=== PATIENT | female | born 1995 | race African-American/Black ===

== ENCOUNTER 2021-09-19 11:00 | Emergency (ER) | payer OTHER ==
[~2021-09-19] VITALS: Ht 160 cm; Wt 72.6 kg
[2021-09-19] MEDS ORDERED: METH-649 PO (13:25)
[2021-09-19] MEDS ORDERED: IBUP-1957 PO (13:25)
--- NOTE | 2021-09-19 13:30 | NUR ---
Patient discharged to home in stable condition. Written and verbal after care instructions given. Patient verbalizes understanding of instruction.
[2021-09-19 13:31] VITALS: BP 110/67
== END 2021-09-19 13:31 | disposition home or self-care (01) ==
LOC: ER 11:30 → EDSEX 11:30 → ER 13:31
DX: S16.1XXA Strain of muscle, fascia and tendon at neck level, initial encounter (principal); S29.012A Strain of muscle and tendon of back wall of thorax, initial encounter; Z88.0 Allergy status to penicillin; Z79.899 Other long term (current) drug therapy; V89.2XXA Person injured in unspecified motor-vehicle accident, traffic, initial encounter; Y93.89 Activity, other specified; Y92.89 Other specified places as the place of occurrence of the external cause; Y99.8 Other external cause status
CPT/HCPCS: 84703-TC

== ENCOUNTER 2023-04-09 08:56 | Emergency (ER) | payer BC, OTHER ==
[~2023-04-09] VITALS: Ht 160 cm; Wt 72.6 kg
[~2023-04-09 08:56] MED LIST: IBUP-1957 PO; METH-649 PO
[2023-04-09 09:07] VITALS: BP 135/75; TEMP 98.4
[2023-04-09] MEDS ORDERED: MUPI22OI2 TP (10:17)
[2023-04-09] MEDS ORDERED: DEXT15DR6 EACHEYE (10:17)
[2023-04-09 10:33] VITALS: O2SAT 100
== END 2023-04-09 10:30 | disposition home or self-care (01) ==
LOC: ER 08:56
DX: L01.00 Impetigo, unspecified (principal); Z88.0 Allergy status to penicillin

== ENCOUNTER 2025-01-24 14:40 | Emergency (ER) | payer BC, MEDICAID, OTHER ==
[~2025-01-24] VITALS: Ht 157.5 cm; Wt 81.6 kg
[~2025-01-24 14:40] MED LIST changes: +DEXT15DR6 EACHEYE; +MUPI22OI2 TP
[2025-01-24 15:36] LABS: APPEARANCE,URINE CLEAR (CLEAR); BLOOD, URINE Moderate Ery/uL (NEGATIVE); LEUKOCYTE ESTERASE ,URINE Negative (NEGATIVE); NITRITE, URINE NEGATIVE (NEGATIVE); UGLUCOSE Negative (NEGATIVE)
[2025-01-24 15:37] LABS: PLATELET COUNT (AUTO) 429 K/uL (150-450); RED BLOOD CELL COUNT(AUTO) 5.55 MIL/uL (4.0-5.2); RED CELL DISTRIBUTION WIDTH 14.3 % (11.5-15.0); WHITE BLOOD COUNT (AUTO) 9.6 K/uL (4.3-11.0)
[2025-01-24 15:38] LABS: ADD URINE CULTURE NO; SQUAMOUS EPITHELIAL CELL,UR Few /HPF (None Seen)
[2025-01-24 15:47] LABS: CALCIUM, SERUM 9.2 mg/dL (8.5-10.1); CREATININE 0.6 mg/dL (0.6-1.3); SODIUM SERUM 136.0 mmol/L (136-145); UREA NITROGEN, BLOOD 8.0 mg/dL (7-18)
[2025-01-24 16:01] LABS: PREGNANCY TEST SERUM QUAN 0.0 mIU/mL (0-6)
[2025-01-24 19:58] VITALS: BP 128/80; TEMP 98.5; O2SAT 99
== END 2025-01-24 16:54 | disposition home or self-care (01) ==
LOC: ER 15:02
DX: N93.9 Abnormal uterine and vaginal bleeding, unspecified (principal); R10.20 Pelvic and perineal pain unspecified side; Z88.0 Allergy status to penicillin; Z79.1 Long term (current) use of non-steroidal anti-inflammatories (NSAID)
CPT/HCPCS: 36415; 76856-TC; 80048-TC; 81001; 84702-TC; 85025-TC; 86850-TC; 87086-TC